=== PATIENT | female | born 1990 | race Caucasian/White ===

== ENCOUNTER 2018-02-16 12:03 | Emergency (ER) | payer MEDICAID ==
[~2018-02-16] VITALS: Ht 160 cm; Wt 105.7 kg
[2018-02-16 12:34] VITALS: BP 136/82
== END 2018-02-16 12:51 | disposition home or self-care (01) ==
LOC: ER 12:03
DX: T21.11XA Burn of first degree of chest wall, initial encounter (principal); T21.12XA Burn of first degree of abdominal wall, initial encounter; T21.21XA Burn of second degree of chest wall, initial encounter; T23.172A Burn of first degree of left wrist, initial encounter; X19.XXXA Contact with other heat and hot substances, initial encounter; Y93.89 Activity, other specified; Y99.8 Other external cause status; Y92.89 Other specified places as the place of occurrence of the external cause

== ENCOUNTER 2019-01-11 22:14 | Observation (INO) | payer MEDICAID | END 2019-01-11 23:07 | disposition home or self-care (01) | DRG 566 | LOC: LDRP 22:14 | PROVIDERS: ADMIT Obstetrics & Gynecology; ATTEND Obstetrics & Gynecology | DX: O23.43 Unspecified infection of urinary tract in pregnancy, third trimester (principal); O26.893 Other specified pregnancy related conditions, third trimester; R10.9 Unspecified abdominal pain; R30.0 Dysuria; Z3A.28 28 weeks gestation of pregnancy | CPT/HCPCS: 59025; 81002; G0378 ==